=== PATIENT | male | born 1965 | race Two or more races ===

== ENCOUNTER 2021-12-13 07:10 | Emergency (ER) | payer OTHER ==
[~2021-12-13] VITALS: Ht 172.7 cm; Wt 113.4 kg
[~2021-12-13 07:10] MED LIST: PRINIVIL40 MG; TENORMIN25 MG
[2021-12-13] MEDS ORDERED: TOPROL XL50 M1 PO (07:28)
[2021-12-13] MEDS ORDERED: LIPITOR40 MG PO (07:29)
[2021-12-13] MEDS ORDERED: HYDROXYCHLOROQ200 MG PO (07:31)
[2021-12-13] MEDS ORDERED: NORFLEX100MG PO (10:13)
== END 2021-12-13 10:31 | disposition home or self-care (01) ==
LOC: ER 07:10
DX: R10.13 Epigastric pain (principal); M25.512 Pain in left shoulder; Z20.822 Contact with and (suspected) exposure to COVID-19; Z88.8 Allergy status to other drugs, medicaments and biological substances